=== PATIENT | female | born 1960 | race Caucasian/White ===

== ENCOUNTER → 2020-06-20 | Outpatient (CLI) | payer OTHER ==
--- NOTE | 2020-06-21 02:33 | KCIC ---
US PELVIS W/TV History: Reason: Abnormal Uterine Bleeding / Spl. Instructions: / History: Comparison: None Technique: Grayscale and color Doppler imaging of the pelvis was performed using transabdominal and t ransvaginal technique. Findings: The uterus measures 7.9 x 5.2 x 3.3 cm. Hypoechoic lesion within the uterine fundus measures 0.8 x 2 .8 x 0.6 cm. Myometrial calcification anteriorly. The endometrial stripe measures 2.5 mm. Right ovary measures 1.7 x 1.5 x 1.3 cm. Left ovary measures 2.1 x 1.5 x 1.3 cm. Normal Doppler flow to the ovaries. No adnexal masses are seen. IMPRESSION: 1. Small hypoechoic myometrial lesion, likely fibroid. Electronically signed by: Aung Limon DO (06/21/2020 2:30 AM) [facility]
== END ==
LOC: KCIC US 14:23
PROVIDERS: ATTEND Nurse Practitioner Family
DX: N85.8 Other specified noninflammatory disorders of uterus (principal); N93.9 Abnormal uterine and vaginal bleeding, unspecified
CPT/HCPCS: 76830; 76856